=== PATIENT | male | born 1990 | race African-American/Black ===

== ENCOUNTER 2016-12-19 12:00 | Emergency (ER) | payer SELFPAY ==
[~2016-12-19] VITALS: Ht 175.3 cm; Wt 74.5 kg
[~2016-12-19 12:00] MED LIST: AMOXICILLIN 50500 MG PO; DOXYCYCLINE 10100 MG PO; FLONASE NASAL S16 GM NS; FLOVENT 220MCG7.9 GM IH; FLOVENT DI50 MCG/Act IH; LORTAB 5/500 501 TAB PO; NO HOME MEDICATIONS; NORCO 325 MG-51 TAB PO; PREDNISONE10 MG PO; PREDNISONE20 MG PO; PROAIR HFA0.09 MG/AC IH; PROVENTIL0.09 MG/A1 IH; SEPTRA DS 8001 TAB PO; TAMIFLU 75MG75 MG PO; VENTOLIN0.09 MG IH; ZITHROMAX Z PA250 MG PO
[2016-12-19 12:10] VITALS: BP 145/87; PULSE 75; TEMP 98.5
== END 2016-12-19 13:38 | disposition home or self-care (01) ==
LOC: COL.ER 12:00
DX: S96.912A Strain of unspecified muscle and tendon at ankle and foot level, left foot, initial encounter (principal); J45.909 Unspecified asthma, uncomplicated; X50.1XXA Overexertion from prolonged static or awkward postures, initial encounter; Y92.009 Unspecified place in unspecified non-institutional (private) residence as the place of occurrence of the external cause

== ENCOUNTER 2017-07-15 20:57 | Emergency (ER) | payer SELFPAY ==
[~2017-07-15] VITALS: Ht 175.3 cm; Wt 73.6 kg
[2017-07-15 21:07] VITALS: BP 132/76; TEMP 98.8
[2017-07-16] MEDS ORDERED: PREDNISONE20 MG PO (00:10)
[2017-07-16 00:51] VITALS: PULSE 91
== END 2017-07-16 00:50 | disposition home or self-care (01) ==
LOC: COL.ER 20:57
DX: J45.901 Unspecified asthma with (acute) exacerbation (principal)
CPT/HCPCS: J7512